=== PATIENT | male | born 1985 | race Caucasian/White ===

== ENCOUNTER 2022-04-04 08:18 | Outpatient (CLI) | payer BC, SELFPAY | END 2022-04-04 08:19 | disposition home or self-care (01) | LOC: FRMREF 04-05 12:16 | PROVIDERS: PCP Physician Assistant Medical; Visit Provider Physician Assistant Medical | DX: E78.5 Hyperlipidemia, unspecified (principal) | CPT/HCPCS: 80053; 80061 ==

== ENCOUNTER 2022-10-11 08:09 | Outpatient (CLI) | payer BC, SELFPAY | END 2022-10-11 08:10 | disposition home or self-care (01) | LOC: NFLDREF 10-12 06:09 | PROVIDERS: PCP Physician Assistant Medical; Referring Provider Physician Assistant Medical; Visit Provider Physician Assistant Medical | DX: E78.5 Hyperlipidemia, unspecified (principal) | CPT/HCPCS: 80061; 84450; 84460 ==

== ENCOUNTER 2023-03-04 13:53 | Outpatient (CLI) | payer BC, SELFPAY | END 2023-03-04 13:54 | disposition home or self-care (01) | PROVIDERS: PCP Physician Assistant Medical; Visit Provider Surgery | DX: Z30.2 Encounter for sterilization (principal) | CPT/HCPCS: 89310 ==

== ENCOUNTER 2023-08-01 10:23 | Outpatient (RCR) | payer BC, SELFPAY | END 2023-10-22 11:55 | disposition home or self-care (01) | PROVIDERS: PCP Physician Assistant Medical; Visit Provider Family Medicine | DX: M25.512 Pain in left shoulder (principal); Z51.89 Encounter for other specified aftercare | CPT/HCPCS: 97110; 97140; 97161 ==

== ENCOUNTER 2024-08-03 13:37 | Outpatient (CLI) | payer BC, SELFPAY | END 2024-08-03 13:38 | disposition home or self-care (01) | LOC: NFLDREF 08-04 02:06 | PROVIDERS: PCP Family Medicine; Referring Provider Family Medicine; Visit Provider Physician Assistant Medical | DX: E78.5 Hyperlipidemia, unspecified (principal); Z13.29 Encounter for screening for other suspected endocrine disorder | CPT/HCPCS: 80053; 80061; 84443 ==

== ENCOUNTER 2025-04-18 20:45 | Emergency (ER) | payer BC, SELFPAY ==
[2025-04-18 20:50] VITALS: BP 133/84; PULSE 85; RESP 20; TEMP 36.2; O2SAT 95; BMI 26.8
--- NOTE | 2025-04-18 21:22 | ED.GENADULT ---
HPI - General Adult General Chief complaint: Shortness of Breath/Dyspnea Stated complaint: chest tightness/ shortness of breath Time Seen by Provider: 04/18/25 20:58 History of Present Illness HPI narrative: This 39-year-old male comes in reporting some back and chest discomfort that came on prior to arrival as he was finishing his work day. He states that he was not doing anything strenuous at the time. The pain was 3/10 in severity. He did not have any nausea, vomiting, lightheadedness, diaphoresis, or shortness of breath. He states that it seemed to take a little more effort to breeze in regard to the discomfort but he did not feel short of breath. He reports that he has good exercise tolerance. He is taking a cholesterol lowering medication and does report family history of coronary artery disease in his parents. He does not have any other risk factors. Related Data Home Medications ?Medication ?Instructions ?Recorded ?Confirmed aspirin 81 mg tablet,delayed 81 mg PO QDAY 07/24/23 04/18/25 release Previous Rx's ?Medication ?Instructions ?Recorded rosuvastatin 20 mg tablet 20 mg PO . #90 tabs 08/05/24 Allergies Allergy/AdvReac Type Severity Reaction Status Date / Time No Known Allergies Allergy Unknown Verified 04/18/25 21:02 Review of Systems Status of ROS: Reports: 10 or more systems reviewed and unremarkable except as noted in History and below Narrative: Constitutional: No fevers, no weight gain or loss. Eyes: No discharge. No vision changes. HENT: No congestion, no sore throat, no ear pain. Cardiovascular: No palpitations. Respiratory: No shortness of breath, no wheezes, no cough. Gastrointestinal: No abdominal pain, no vomiting, no diarrhea. Genitourinary: No dysuria, no hematuria. Musculoskeletal: Normal range of motion. Skin: No rashes, no pruritis. Neurological: No dizziness, weakness, sensory change, speech change. Endo/Heme/Allergies: No bruising or bleeding. No polydipsia. Pysch: no suicidality, no anxiety, no insomnia. All other systems reviewed and are negative. [facility] Surgical History Status post vasectomy ?Z98.52 - Vasectomy status (ICD-10) S/P laparoscopic appendectomy ?Z90.49 - Acquired absence of other specified parts of digestive tract (ICD-10) Family History Father Coronary artery disease Social History Narrative: Has 2 children [address] Social alcohol use Patient works as a is project manager. What is your current living situation?: I presently have a place to live In the past 12 months, utilities in danger of being shut off: no In past 12 months, lack of transportation kept you from medical appts, meetings, work, or getting things needed for daily living: no In the past 12 mos, have been you worried that your food would run out before you had money to buy more?: never true In the past 12 mos, the food you bought just didn't last and you didn't have money to buy more?: never true Smoking Status: Former smoker Do you use any of these nicotine containing products: None How often do you have a drink containing alcohol: 2-3 times a week How many standard drinks containing alcohol do you have on a typical day: 1 or 2 How often do you have six or more drinks on one occasion: Never AUDIT-C Alcohol total score: 3 Non-prescribed substance use: denies use How often does anyone, including family, friends and others, physically hurt you: never How often does anyone, including family, friends and others, insult or talk down to you: never How often does anyone, including family, friends and others, threaten you with harm: never How often does anyone, including family, friends and others, scream or curse at you: never service: No Exam Narrative: Exam Narrative: Constitutional: Well-developed, well-nourished, no acute distress. HEENT: Normocephalic, atraumatic. Neck: Normal range of motion. Nontender. Supple. Heart: Regular. No murmurs. Normal rate. Intact distal pulses. Lungs: Clear to auscultation. No chest discomfort. No wheezes, rhonchi, or rales. Abdomen: Normal bowel sounds. Nontender. No rebound tenderness. Genitalia: Deferred. Back: No midline tenderness. Normal range of motion. Extremities: Normal range of motion. No injury. Skin: Intact. No rash. Warm. No erythema or pallor. Neurologic: No altered sensation. No weakness. Alert and oriented. Psychiatric: No suicidality. No anxiety or depression. No insomnia. Nursing notes and vitals signs are reviewed. Const: Vital Signs, click to edit/add: Vital Signs - 24 hr 04/18/25 20:50 Temperature 97.2 F L Pulse Rate [Right Pulse Oximeter] 85 Respiratory Rate 20 Blood Pressure [Ri ght Upper Arm] 133/84 Pulse Oximetry 95 Oxygen Delivery Me thod Room Air Course Vital Signs Vital signs: Initial Vital Signs Temperature 97.2 F L 04/18/25 20:50 Temperature Source Temporal Artery Scan 04/18/25 20:50 Pulse Rate 85 04/18/25 20:50 Pulse Rhythm Regular 04/18/25 20:50 Pulse Strength 3+ Normal 04/18/25 20:50 Respiratory Rate 20 04/18/25 20:50 Blood Pressure 133/84 04/18/25 20:50 Blood Pressure Mean 100 04/18/25 20:50 Blood Pressure Position Sitting 04/18/25 20:50 Pulse Oximetry 95 04/18/25 20:50 Oxygen Delivery Method Room Air 04/18/25 20:50 Vital Signs Temperature 97.2 F L 04/18/25 20:50 Pulse Rate 85 04/18/25 20:50 Respiratory Rate 20 04/18/25 20:50 Blood Pressure 133/84 04/18/25 20:50 Pulse Oximetry 95 04/18/25 20:50 Oxygen Delivery Method Room Air 04/18/25 20:50 Temperature 97.2 F L 04/18/25 20:50 Pulse Rate 85 04/18/25 20:50 Respiratory Rate 20 04/18/25 20:50 Blood Pressure 133/84 04/18/25 20:50 Pulse Oximetry 95 04/18/25 20:50 Oxygen Delivery Method Room Air 04/18/25 20:50 Medical Decision Making MDM Narrative Medical decision making narrative: This patient comes in stating that he had some back pain and chest discomfort as described above. He did not have any other associated symptoms in rates his pain at 3/10 in severity. His symptoms have since improved. He was not doing anything exertional to bring on these symptoms and does not report any injury or strenuous event to trigger it. Additionally he reports good exercise tolerance. He states that he regularly ambulates up and down 3 or 4 flights of stairs and has no symptoms when doing so. EKG looks normal as does his blood today. He is okay to be discharged home. Lab Data Labs: Lab Results 04/18/25 04/18/25 04/18/25 Range/Units 21:07 21:35 21:42 WBC 7.03 (4.50-11.00) K/uL RBC 4.87 (4.30-5.90) m/uL Hgb 14.9 (13.5-17.5) gm/dL Hct 41.9 (37.0-53.0) % MCV 86 (80-100) fL MCH 31 (26-34) pg MCHC 36 (32-36) gm/dL RDW Coeff of Jonna 11.7 (11.5-15.5) % Plt Count 182 (140-440) K/uL Neut % (Auto) 44.4 (42.0-72.0) % Lymph % (Auto) 45.0 H (20-44) % [place] % (Auto) 8.3 (0.0-11.0) % Eos % (Auto) 1.3 (0.0-7.0) % Baso % (Auto) 0.1 (0.0-3.0) % Neut # (Auto) 3.13 (1.7-7.0) K/uL Lymph # (Auto) 3.20 H (0.90-2.90) K/uL [place] # (Auto) 0.60 (0.00-0.90) K/UL Eos # (Auto) 0.09 (0.00-0.50) K/uL Baso # (Auto) 0.01 (0.00-0.30) K/uL Abs Immat Gran (auto) 0.06 (0.00-0.30) K/uL Imm/Tot Granulo (auto) 0.9 % Sodium 139 (135-149) mmol/L Potassium 4.0 (3.6-5.1) mmol/L Chloride 103 (96-114) mmol/L Carbon Dioxide 26 (20-32) mmol/L Anion Gap 10 (7-15) mEq/L BUN 20 (5-24) mg/dL Creatinine 1.0 (0.5-1.5) mg/dL Estimated Creat Clear 90.38 Estimated GFR 99 ml/min Glucose 93 (60-115) mg/dL Calcium 8.5 (8.4-10.6) mg/dL SARS-CoV-2 (PCR) Negative SARS-CoV-2 (Negative) Influenza Type A (PCR) Negative PCR FLU A (Negative) Influenza Type B (PCR) Negative PCR FLU B (Negative) RSV (PCR) Negative PCR RSV (Negative) POC Troponin I 0.00 L (0.01-0.04) ng/ml ECG Data Attestation: I personally reviewed and interpreted this ECG as follows: Interpretation: Normal sinus rhythm. Rate is 77 beats per minute. There are no ST or T-wave abnormalities. Discharge Plan Discharge Clinical Impression: Atypical chest pain Patient Disposition: Home, Self-Care Condition: Improved Additional Instructions: Continue current plans. Follow up with MD as needed or return if worsening. Prescriptions: No Action rosuvastatin 20 mg tablet 20 mg PO .hs Qty: 90 3RF aspirin 81 mg tablet,delayed release (DR/EC) 81 mg PO QDAY Follow Up/Referrals: Raysa Richardson MD [Primary Care Provider, Family Practice] Stand Alone Forms: Re [facility] Info Instructions
[2025-04-18 21:53] LABS: PCR FLU A Negative PCR FLU A (Negative); PCR FLU B Negative PCR FLU B (Negative); PCR RSV Negative PCR RSV (Negative); SARS PCR* Negative SARS-CoV-2 (Negative)
[2025-04-18 21:54] LABS: Troponin, Point-of-Care* 0.00 ng/ml (0.01-0.04)
[2025-04-18 21:55] LABS: Hematocrit* 41.9 % (37.0-53.0); Hemoglobin* 14.9 gm/dL (13.5-17.5); Immature Granulocytes Abs Auto 0.06 K/uL (0.00-0.30); Immature Granulocytes Pct Auto 0.9 %; Mean Corpuscular HGB Conc 36 gm/dL (32-36); Mean Corpuscular Hemoglobin 31 pg (26-34); Mean Corpuscular Volume 86 fL (80-100); RDW Coefficient of Variation % 11.7 % (11.5-15.5); Red Blood Count* 4.87 m/uL (4.30-5.90); White Blood Count* 7.03 K/uL (4.50-11.00)
[2025-04-18 22:09] LABS: Chloride* 103 mmol/L (96-114); Lymphocytes Absolute Auto 3.20 K/uL (0.90-2.90); Slide Review Reflex No; Sodium* 139 mmol/L (135-149)
[2025-04-18 22:10] LABS: Potassium* 4.0 mmol/L (3.6-5.1)
[2025-04-18 22:12] LABS: Blood Urea Nitrogen* 20 mg/dL (5-24); Creatinine* 1.0 mg/dL (0.5-1.5); Est. Creatinine Clearance* 90.38; Estimated Glomerular Filt Rate 99 ml/min
[2025-04-18 22:13] LABS: Anion Gap 10 mEq/L (7-15); Calcium* 8.5 mg/dL (8.4-10.6); Carbon Dioxide* 26 mmol/L (20-32); Glucose* 93 mg/dL (60-115)
== END 2025-04-18 22:38 | disposition home or self-care (01) ==
PROVIDERS: Emergency Provider Emergency Medicine Emergency Medical Services; PCP Family Medicine
DX: R07.89 Other chest pain (principal)
CPT/HCPCS: 36415; 80048; 84484; 85025; 87631; 93005; 99284